=== PATIENT | female | born 1960 | race Caucasian/White ===

== ENCOUNTER 2023-09-19 16:19 | Emergency (ER) | payer MEDICARE, SELFPAY ==
[2023-09-19 16:46] VITALS: BP 151/91; PULSE 93; RESP 16; TEMP 36.8; O2SAT 100
[2023-09-19 20:09] VITALS: BP 139/82; PULSE 71; RESP 19; O2SAT 100
--- NOTE | 2023-09-19 20:43 | ED.DENTAL ---
HPI - Dental/Oral General Chief complaint: Dental/Oral Stated complaint: dental pain Time Seen by Provider: 09/19/23 20:43 Source: patient Mode of arrival: ambulatory Limitations: no limitations History of Present Illness HPI Narrative: 63 years old white female came to the emergency room by private car complaining of right lower wisdom tooth pain started few days ago, last time was seen by a dentist over 2 years ago. Patient was complaining of runny nose and postnasal discharge over the last few days, a roommate had similar symptoms and tested negative for COVID recently. Patient denies any fever, chills, headache, difficulty swallowing or breathing Review of Systems Review of Systems: All systems reviewed & are unremarkable except as noted in HPI and below Exam Narrative: General appearance: Well-developed, well-nourished Skin: Normal color Head: Normocephalic, nontraumatic Eyes: Clear conjunctiva ENT: Oropharynx normal, ears normal, runny nose, right lower wisdom tooth showed slight tenderness, slight erythematous changes around it, no swelling, no discharge no abscess formation at this time Neck: Supple, nontender Chest and respiratory: Airway patent, no respiratory distress, no accessory muscle use Heart: Regular rate/rhythm Neurologic: Alert and oriented ?3, PHYSICAL THERAPY ASST is normal as tested, no gross motor deficit Course Vital Signs Vital signs: Vital Signs Temperature 36.8 C 09/19/23 16:46 Pulse Rate 93 09/19/23 16:46 Respiratory Rate 16 09/19/23 16:46 Blood Pressure 151/91 H 09/19/23 16:46 Pulse Oximetry 100 09/19/23 16:46 Oxygen Delivery Room Air 09/19/23 16:46 Temperature 36.8 C 09/19/23 16:46 Pulse Rate 71 09/19/23 20:09 Respiratory Rate 19 09/19/23 20:09 Blood Pressure 139/82 09/19/23 20:09 Pulse Oximetry 100 09/19/23 20:09 Oxygen Delivery Room Air 09/19/23 16:46 Critical Care Time Critical Care Time Critical Care Time: No Discharge Plan Discharge Clinical Impression: Toothache, Common cold Patient Disposition: Home, Self-Care Condition: Stable Instructions: Antibiotic Form, Cold Symptoms (ED), Toothache (ED) Additional Instructions: Return if symptoms are worsening , call your dentist/family physician for appointement, take Tylenol as as needed for aches and pain, continue home medications. 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
== END 2023-09-19 22:37 | disposition home or self-care (01) ==
LOC: ANHED 21:12
PROVIDERS: Emergency Provider Emergency Medicine
DX: K08.89 Other specified disorders of teeth and supporting structures (principal); J00 Acute nasopharyngitis [common cold]
CPT/HCPCS: 99283